=== PATIENT | male | born 1940 | race Two or more races ===

== ENCOUNTER 2025-01-13 14:45 | Emergency (ER) | payer MEDICARE, MEDICAID, SELFPAY ==
[2025-01-13 14:59] VITALS: BP 120/71; PULSE 81; RESP 18; TEMP 36.6; O2SAT 99
--- NOTE | 2025-01-13 15:02 | XR_ITS ---
Examination:Left hip AP, lateral, AP pelvis 3 views Technique: Hip AP lateral, AP pelvis, 3 views Exam date and time:January 13, 2025 1537 hours INDICATIONS: Patient fell today with injury of the left hip, left hip pain FINDINGS: Old healed fracture left hip No acute left hip fracture Acute appearing nondisplaced fracture left inferior pubic ramus IMPRESSION: Recommend CT scan pelvis without contrast follow-up to confirm acute fracture left inferior pubic ramus.
[2025-01-13] MEDS: KETOROLAC INJ 60 MG/2 ML VIAL 30 MG IM (15:10)
--- NOTE | 2025-01-13 16:17 | XR_ITS ---
Examination: CT left hip, without contrast. CT pelvis without intravenous contrast 2-D sagittal reconstructions. 2-D coronal reconstructions. 3-D reconstructions. Date and time of exam:January 13, 2025 at 1733 hrs. Indications: Patient fell today with into the left hip, left hip pain CTDI: vol (mGy):8 DLP: (mGycm):295 Technique: Multiple 1.25 mm axial sections of the pelvis left hip have been obtained. 2-D sagittal and coronal reconstructions have been obtained. 3-D reconstructions have been obtained. Low dose protocols were performed. One or more of the following dose reduction techniques were used; automated exposure control, adjustment of the mA and/or KV according to patient size, use of iterative reconstruction technique. Findings: Severe osteopenia Sacral segments intact Iliac bones intact Acute comminuted fractures left inferior pubic ramus No definite fracture of the left superior pubic ramus Mild deformity of the anterior left acetabulum axial image 96 Hips intact No pelvic hematoma Impression: No acute hip fracture Comminuted acute fracture left inferior pubic ramus Mild old appearing deformity anterior left acetabulum but clinical correlation advised
--- NOTE | 2025-01-13 16:18 | EDRME_ITS ---
Rapid Medical Screening Exam [facility] Arrival date/time: 01/13/25 14:45 84-year-old male with a history of hypertension presents to the emergency room with a chief complaint of pain and tenderness to his left hip after pouring concrete in his yard 1 hour ago and having a ground-level fall. I have greeted and performed a focused initial assessment of this patient. A comprehensive ED assessment and evaluation of the patient, analysis of all test results, and completion of the medical decision making process will be conducted by additional ED providers. Chief Complaint: Fall Time Seen by Provider: 01/13/25 14:54 Vital signs: Vital Signs Temperature 98 F 01/13/25 14:59 Pulse Rate 81 01/13/25 14:59 Respiratory Rate 18 01/13/25 14:59 Blood Pressure 120/71 01/13/25 14:59 Pulse Oximetry (%) 99 01/13/25 14:59 Oxygen Delivery Method Room Air 01/13/25 14:59 Vital signs reviewed by provider: Yes
--- NOTE | 2025-01-13 16:56 | EKG_ITS ---
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
--- NOTE | 2025-01-13 17:04 | PD.EDADULT ---
ED General RME/HPI General Chief complaint: Fall Stated complaint: FALL LANDING ON L) HIP, HIT HEAD, NO BLOOD THINNER Time Seen by Provider: 01/13/25 14:54 Arrival date/time: 01/13/25 14:45 CC: Left hip pain HPI patient was pulling backwards on a wheelbarrow full of concrete and slipped falling backwards experienced immediate left hip pain patient denies LOC or LOC. Patient is awake alert takes Plavix. Patient denies chest pain shortness of breath difficulty breathing. Patient is ambulating but leaning heavily on a cane pain. RME / HPI RME / HPI narrative: 01/13/25 14:45 84-year-old male with a history of hypertension presents to the emergency room with a chief complaint of pain and tenderness to his left hip after pouring concrete in his yard 1 hour ago and having a ground-level fall. I have greeted and performed a focused initial assessment of this patient. A comprehensive ED assessment and evaluation of the patient, analysis of all test results, and completion of the medical decision making process will be conducted by additional ED providers. Related Data Home Medications ?Medication ?Instructions ?Recorded ?Confirmed tamsulosin 0.4 mg capsule (Flomax) 0.4 mg PO DAILY PROSTATE ##0 02/13/13 07/01/24 lisinopril 10 mg tablet 10 mg PO QDAY #0 tabs 03/20/16 07/01/24 dutasteride 0.5 mg capsule 0.5 mg PO DAILY 07/01/24 07/01/24 hydrocodone 10 mg-acetaminophen 1 tab PO QID 07/01/24 07/01/24 325 mg tablet meclizine 25 mg tablet 25 mg PO TID PRN Dizziness 07/01/24 07/01/24 Previous Rx's ?Medication ?Instructions ?Recorded atorvastatin 40 mg tablet 40 mg PO QPM #60 tabs 07/03/24 clopidogrel 75 mg tablet (Plavix) 75 mg PO QDAY #30 tabs 07/04/24 Allergies Allergy/AdvReac Type Severity Reaction Status Date / Time No Known Allergies Allergy Verified 01/13/25 14:50 Review of Systems Review of Systems Narrative Review of Systems: GEN: No fever, no chills, no weight loss EYES: No discharge, no visual changes, no pain HEENT: No ear pain, no congestion, no sore throat PULM: No shortness of breath, no cough, no congestion CV: No chest pain, no dyspnea on exertion, no palpitations GI: No nausea, no vomiting, no diarrhea, no pain, no constipation : No frequency, no urgency, no dysuria MUSC/SKEL: + joint pain, no back pain SKIN: No rash PSYCH: No hallucinations, no depression HEME/LYMPH: No easy bleeding or bruising tendencies NEURO: No weakness, no headache ED Exam Narrative Physical exam: [General: Not in any acute distress Head normocephalic HEENT: Within acceptable limits Neck is supple nontender Chest equal chest rise nontender to palpation Respiratory: Clear to auscultation no wheezes crackles or rubs CV: Rate rhythm is regular no murmurs rubs or clicks Abdomen is distended secondary to body habitus soft nontender no masses positive bowel sounds all 4 quadrants Tenderness to palpation direct pressure on the left hip. No pain with squeeze. Back: No CVA tenderness no spinous process tenderness from cervical spine thoracic and lumbar spine Skin: Intact no petechiae rash induration ulceration or crepitus Extremities: Moving all extremity against resistance cap refill less than 2 seconds neurosensory intact Neuro: Awake alert oriented x3 Glascow coma 15 no focal deficits] Course Quality Measures none Orders Category Date Time Status EKG (ED ONLY) *Do not use* NOW Care 01/13/25 16:[address] cervical spine wo con Stat Exams 01/13/25 17:[address] head/brain wo con Stat Exams 01/13/25 17:[address] hip LT wo con Stat Exams 01/13/25 16:17 Completed EKG (ED Only) Stat Exams 01/13/25 16:56 Draft XR hip LT w pelvis min 4V Stat Exams 01/13/25 15:02 Completed B-Type Natriuretic Peptide Stat Lab 01/13/25 17:09 Completed CBC Stat Lab 01/13/25 17:09 Completed Comprehensive Metabolic Panel Stat Lab 01/13/25 17:09 Completed Drug Screen,Urine Stat Lab 01/13/25 16:56 Ordered LDH (Lactate Dehydrogenase) Stat Lab 01/13/25 17:09 Completed Magnesium Stat Lab 01/13/25 17:09 Completed Partial Thromboplastin Time Stat Lab 01/13/25 17:09 Completed Prothrombin Time with INR Stat Lab 01/13/25 17:09 Completed Troponin I Stat Lab 01/13/25 17:09 Completed Urinalysis Stat Lab 01/13/25 16:56 Ordered Ketorolac Inj [Toradol Inj] Med 01/13/25 15:05 Discontinued 30 mg IM X1 ONE Vital Signs Vital signs: Vital Signs Temperature 98 F 01/13/25 14:59 Pulse Rate 81 01/13/25 14:59 Respiratory Rate 18 01/13/25 14:59 Blood Pressure 120/71 01/13/25 14:59 Pulse Oximetry (%) 99 01/13/25 14:59 Oxygen Delivery Method Room Air 01/13/25 14:59 Discharge Plan Plan Patient Disposition: HOME (Self Care) Patient condition on transfer: Stable Prescriptions/Referrals Prescriptions/Med Rec: No Action tamsulosin [Flomax] 0.4 MG capsule,extended release 24hr 0.4 mg PO DAILY Qty: 0 lisinopril 10 MG tablet 10 mg PO QDAY Qty: 0 hydrocodone-acetaminophen 10-325 mg tablet 1 tab PO QID meclizine 25 mg tablet 25 mg PO TID PRN (Reason: Dizziness) dutasteride 0.5 mg capsule 0.5 mg PO DAILY atorvastatin 40 mg tablet 40 mg PO QPM Qty: 60 0RF clopidogrel [Plavix] 75 mg tablet 75 mg PO QDAY Qty: 30 1RF Referrals: Colten Washington MD [Primary Care Provider] - In 1 week Problem List Clinical Impression: Fracture of inferior pubic ramus Patient/Caregiver Discharge Instructions Other Activity Instructions:: Use your cane walker, take the [place] you have at home for pain if there is a worsening of symptoms return the emergency room for reevaluation. Education Materials: [employer] Print Language: Bangladeshi Stand Alone Forms: Roshni Award Info., Work/School Release, Patient Portal Info Letter PA/MARITIME GUARD Supervising Physician PA/MARITIME GUARD Supervising Physician: Donnie Rust ENP MDM Patient Acuity High Acuity (complete MDM) Clinical Information Provided by: patient Medical Records reviewed [facility] EKG EKG Interpretation(s): EKG performed at 1718 shows a ventricular rate of 64. Of 147 QRS of 102 QTc of 412 is normal sinus rhythm. Labs Lab(s) Interpretation(s): CBC shows no acute leukocytosis H&H of 12.7 and 38.0 respectively no thrombocytopenia Coags within acceptable limits Sodium 135 gap of 6 BUN of 24 no other significant electrolyte imbalances renal impairment or transaminitis or T. bili elevation Troponin is negative BNP is negative Imaging Imaging Interpretation(s): Plain film of the pelvis shows a nondisplaced inferior ramus fracture CT confirms no other additional fractures. CT head C-spine negative for any acute finding requires emergent need intervention. Medication Administration(s) Medication Administration History Discontinued Medications Ketorolac Tromethamine (Ketorolac Inj 60 Mg/2 Ml Vial) 30 mg IM X1 ONE Stop: 01/13/25 15:06 Last Admin: 01/13/25 15:10 Dose: 30 mg Documented By: Diagnosis Differential Diagnosis ED Complaint MDM: Acetabular fracture femoral neck fracture ramus fracture
--- NOTE | 2025-01-13 17:06 | XR_ITS ---
Examination: CT brain head without contrast. 2-D sagittal coronal reconstructions Date and time of exam:January 13, 2025 1726 hrs. Indications: Patient fell today with injury to the head, head pain CTDI: vol (mGy):50.4 DLP: (mGycm):1036 Technique: Multiple CT axial sections of the brain have been obtained, 5 mm slice thickness. Contrast has not been administered. 2-D sagittal, coronal reconstructions have been obtained Low dose protocols were performed. One or more of the following dose reduction techniques were used; automated exposure control, adjustment of the mA and/or KV according to patient size, use of iterative reconstruction technique. Findings: No significant ventricular enlargement. Old infarcts right cerebellar hemisphere, prominent cisterna magna Old fracture medial wall right orbit Significant right maxillary sinus disease Intra-axial or extra-axial hemorrhage density is not seen. No mass effect or midline shift Basal cisterns are not remarkable. Fourth ventricle is midline. Cranial vault intact. Impression: Negative for acute hemorrhage, mass effect or midline shift
--- NOTE | 2025-01-13 17:06 | XR_ITS ---
Examination: CT cervical spine without contrast 2-D sagittal reconstructions 2-D coronal reconstructions 3-D reconstructions. Exam date and time:January 13, 2025 1726 hrs. Indications: Patient fell today with injury to the neck, neck pain CTDI:vol (mGy) 8.42 DLP: (mGycm) 194 Technique: Multiple 2 mm axial sections of the cervical spine have been obtained. The coronal and sagittal reconstructions have been obtained. 3-D reconstructions have been obtained. Low dose protocols were performed. One or more of the following dose reduction techniques were used; automated exposure control, adjustment of the mA and/or KV according to patient size, use of iterative reconstruction technique. Findings: Axial sections demonstrate intact base of the skull. C1 exhibit satisfactory relationship to the odontoid. No acute cervical vertebral body fracture seen. Alignment posterior spinous processes satisfactory. Impression: No acute cervical fracture.
[2025-01-13 17:22] LABS: Basophils % (Auto) 1 % (0-2.5); Eosinophils # (Auto) 0.1 Thou/mm3 (0.0-0.5); Eosinophils % (Auto) 1 % (0-10); Hemoglobin 12.7 g/dL (13.5-16.0); Immature Granulocytes % (Auto) 0 % (0-0); Immature Granulocytes Auto 0.03 Thou/mm3 (0.00-0.00); Lymphocytes # (Auto) 1.2 Thou/mm3 (1.0-4.8); Lymphocytes % (Auto) 16 % (10-50); Mean Corpuscular HGB Conc 33.4 g/dl (31.0-37.0); Mean Corpuscular Hemoglobin 29.7 pg (25.0-35.0); Mean Corpuscular Volume 89 fL (80-100); Monocytes # (Auto) 0.6 Thou/mm3 (0.0-0.8); Monocytes % (Auto) 8 % (0-12); Neutrophils # (Auto) 5.6 Thou/mm3 (1.8-7.7); Neutrophils % (Auto) 74 % (37-80); Nucleated Red Blood Cell % 0 /100 WBC (0); Platelet Count 238 Thou/mm3 (140-440); RDW Standard Deviation 47.3 fL (35.1-43.9); Red Blood Count 4.27 Miln/mm3 (4.50-5.90); White Blood Count 7.6 Thou/mm3 (3.8-10.6)
[2025-01-13 17:56] LABS: B-Type Natriuretic Peptide 65 pg/mL (0-100)
[2025-01-13 18:02] LABS: Alanine Aminotransferase 25 U/L (10-49); Albumin, Serum 4.2 gm/dL (3.4-4.8); Albumin/Globulin Ratio 1.1 (1.2-2.2); Alkaline Phosphatase 104 U/L (46-116); Anion Gap 6 (7-16); Aspartate Amino Transferase 29 U/L (0-34); BUN/Creatinine Ratio 24 Ratio (12-20); Bilirubin,Total 0.5 mg/dL (0.3-1.2); Blood Urea Nitrogen 24 mg/dL (9-23); Calcium 9.4 mg/dL (8.3-10.6); Calcium (Corrected) 9.4 mg/dL (8.5-10.1); Carbon Dioxide 25.3 mMol/L (20.0-31.0); Chloride 104 mMol/L (98-107); Globulin 3.8 gm/dL (2.3-3.5); Glucose 86 mg/dL (74-106); LDH (Lactate Dehydrogenase) 222 U/L (120-246); Magnesium 2.4 mg/dL (1.6-2.6); Osmolality,Calculated 273 (275-295); Potassium 4.2 mMol/L (3.4-5.1); Sodium 135 mMol/L (136-145); Troponin I < 0.020 ng/mL (0.0-0.045); eGFR > 60 See Note
[2025-01-13 18:21] VITALS: BP 95/60; PULSE 62; RESP 18; TEMP 36.6; O2SAT 97
[2025-01-13 18:24] LABS: Prothrombin Time 11.2 Seconds (9.0-12.2)
== END 2025-01-13 19:05 | disposition home or self-care (01) ==
PROVIDERS: Registered Nurse General Practice; Emergency Provider Family Medicine; PCP Family Medicine
DX: S32.592A Other specified fracture of left pubis, initial encounter for closed fracture (principal); S19.9XXA Unspecified injury of neck, initial encounter; S09.90XA Unspecified injury of head, initial encounter; I10 Essential (primary) hypertension; W01.0XXA Fall on same level from slipping, tripping and stumbling without subsequent striking against object, initial encounter
CPT/HCPCS: 36415; 70450; 72125; 73503; 73700; 80053; 80307; 81001; 83615; 83735; 83880; 84484; 85025; 85610; 85730; 93005; 96372; 99284; J1885

== ENCOUNTER 2025-07-02 10:28 | Emergency (ER) | payer MEDICARE, OTHER, SELFPAY ==
[2025-07-02 10:29] VITALS: BMI 25.0
--- NOTE | 2025-07-02 10:33 | EKG_ITS ---
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
[2025-07-02 10:40] VITALS: BP 152/92; PULSE 76; RESP 19; TEMP 36.4; O2SAT 97
--- NOTE | 2025-07-02 11:02 | XR_ITS ---
Examination: CT cervical spine without contrast 2-D sagittal reconstructions 2-D coronal reconstructions 3-D reconstructions. Exam date and time: July 02, 2025, 1139 hours Sudden onset neck pain beginning 4 days ago CTDI:vol (mGy) 14.3 DLP: (mGycm) 319 Technique: Multiple 2 mm axial sections of the cervical spine have been obtained. The coronal and sagittal reconstructions have been obtained. 3-D reconstructions have been obtained. Low dose protocols were performed. One or more of the following dose reduction techniques were used; automated exposure control, adjustment of the mA and/or KV according to patient size, use of iterative reconstruction technique. Findings: Axial sections demonstrate intact base of the skull. C1 exhibit satisfactory relationship to the odontoid. No acute cervical vertebral body fracture seen. Alignment posterior spinous processes satisfactory. Advanced degenerative disc disease C5-C6, C6-C7 C3-C4 moderate bilateral neural foraminal stenosis C4-C5 moderate right neural foraminal stenosis C5-C6 advanced right moderate left neural foraminal stenosis C6-C7 advanced right and moderate left neural foraminal stenosis Impression: No acute cervical fracture. Advanced degenerative disc disease C5-C6, C6-C7 C3-C4 moderate bilateral neuroforaminal stenosis C4-C5 moderate right neuroforaminal stenosis C5-C6 advanced right moderate left neuroforaminal stenosis C6-C7 advanced right moderate left neural foraminal stenosis As clinically warranted, MRI cervical spine without contrast follow-up would be preferable in assessing full extent of acquired soft tissue spinal stenosis
[2025-07-02 11:25] VITALS: PULSE 72
[2025-07-02 11:43] LABS: Basophils # (Auto) 0.0 Thou/mm3 (0.0-0.2); Basophils % (Auto) 1 % (0-2.5); Eosinophils # (Auto) 0.0 Thou/mm3 (0.0-0.5); Eosinophils % (Auto) 1 % (0-10); Hematocrit 37.4 % (41.0-53.0); Hemoglobin 12.4 g/dL (13.5-16.0); Immature Granulocytes Auto 0.01 Thou/mm3 (0.00-0.00); Lymphocytes # (Auto) 1.3 Thou/mm3 (1.0-4.8); Lymphocytes % (Auto) 18 % (10-50); Mean Corpuscular HGB Conc 33.2 g/dl (31.0-37.0); Mean Corpuscular Hemoglobin 31.1 pg (25.0-35.0); Mean Corpuscular Volume 94 fL (80-100); Monocytes # (Auto) 0.9 Thou/mm3 (0.0-0.8); Monocytes % (Auto) 12 % (0-12); Neutrophils # (Auto) 4.9 Thou/mm3 (1.8-7.7); Neutrophils % (Auto) 69 % (37-80); Nucleated Red Blood Cell # 0.00 Thou/mm3 (0.00-0.00); Nucleated Red Blood Cell % 0 /100 WBC (0); Platelet Count 247 Thou/mm3 (140-440); RDW Standard Deviation 46.5 fL (35.1-43.9); Red Blood Count 3.99 Miln/mm3 (4.50-5.90); White Blood Count 7.2 Thou/mm3 (3.8-10.6)
[2025-07-02] MEDS: MORPHINE SULF INJ 4 MG/ML VIAL IVP (11:45)
[2025-07-02] MEDS: ONDANSETRON INJ 2 MG/ML INJ 2 ML 4 MG IVP (11:45)
[2025-07-02] MEDS: SODIUM CHLORIDE 0.9% 250 ML 250 ML 999 ML IV (11:45)
[2025-07-02 11:56] LABS: Alanine Aminotransferase 18 U/L (10-49); Albumin, Serum 4.2 gm/dL (3.4-4.8); Albumin/Globulin Ratio 1.2 (1.2-2.2); Alkaline Phosphatase 100 U/L (46-116); Anion Gap 11 (7-16); Aspartate Amino Transferase 23 U/L (0-34); BUN/Creatinine Ratio 21 Ratio (12-20); Bilirubin,Total 0.8 mg/dL (0.3-1.2); Blood Urea Nitrogen 15 mg/dL (9-23); Calcium 9.2 mg/dL (8.3-10.6); Calcium (Corrected) 9.2 mg/dL (8.5-10.1); Carbon Dioxide 23.7 mMol/L (20.0-31.0); Chloride 101 mMol/L (98-107); Creatinine (Component) 0.7 mg/dL (0.6-1.3); Estimated Creatinine Clearance 73.3 mL/min (>60); Globulin 3.5 gm/dL (2.3-3.5); Glucose 103 mg/dL (74-106); Osmolality,Calculated 272 (275-295); Potassium 4.0 mMol/L (3.4-5.1); Sodium 136 mMol/L (136-145); Total Protein 7.7 gm/dL (5.7-8.2); Troponin I < 0.020 ng/mL (0.0-0.045); eGFR > 60 See Note
--- NOTE | 2025-07-02 12:20 | PD.EDCHEST ---
ED Chest Pain RME/HPI General Chief Complaint: Chest Pain Stated Complaint: UPPER NECK AND BACK PAIN RADIATING X 4DAYS Time Seen by Provider: 07/02/25 10:52 Arrival date/time: 07/02/25 10:28 Limitations: no limitations RME / HPI RME / HPI narrative: 84 year old male with history of CVA, hypertension presents to the ED for evaluation of neck pain beginning 4-5 days ago. Pain described as aching in sensation that is accompanied by difficulty turning his head to the right. Additionally complains of mild chest pain. States he has consulted with his PCP who prescribed Baclofen and has taken the medication without change. Patient and expressed concerns of something more going on and possible having had another stroke. Denies any fevers, chills, sweats, cough, shortness of breath, weakness. No trauma or injury. Related Data Home Medications ?Medication ?Instructions ?Recorded ?Confirmed tamsulosin 0.4 mg capsule (Flomax) 0.4 mg PO DAILY PROSTATE ##0 02/13/13 07/01/24 lisinopril 10 mg tablet 10 mg PO QDAY #0 tabs 03/20/16 07/01/24 dutasteride 0.5 mg capsule 0.5 mg PO DAILY 07/01/24 07/01/24 hydrocodone 10 mg-acetaminophen 1 tab PO QID 07/01/24 07/01/24 325 mg tablet meclizine 25 mg tablet 25 mg PO TID PRN Dizziness 07/01/24 07/01/24 Previous Rx's ?Medication ?Instructions ?Recorded atorvastatin 40 mg tablet 40 mg PO QPM #60 tabs 07/03/24 clopidogrel 75 mg tablet (Plavix) 75 mg PO QDAY #30 tabs 07/04/24 hydrocodone 5 mg-acetaminophen 325 1 tab PO Q8H PRN pain #14 tabs 07/02/25 mg tablet Allergies Allergy/AdvReac Type Severity Reaction Status Date / Time No Known Allergies Allergy Verified 07/02/25 10:32 Review of Systems Review of Systems Systems Reviewed: All systems reviewed, normal except as documented Past Medical History Past Medical History NEUROLOGIC: Positive Cerebrovascular Accident CARDIAC: Positive Hypercholesterolemia and Hypertension RESPIRATORY: Negative Chronic Obstructive Pulmonary Disease (COPD) GENITOURINARY: Positive Benign Prostatic Hyperplasia ENDOCRINE: Negative Diabetes Mellitus Type 1 or Diabetes Mellitus Type 2 Family History FAMILY HISTORY: Positive Family Cancer (mom of stomach cancer) Social History SMOKING STATUS: Never smoker SUBSTANCE USE: does not use ED Exam General Limitations: Present no limitations General appearance: Present alert and in no apparent distress Head Head exam: Present atraumatic, normocephalic and normal inspection Eye Eye exam: Present normal appearance, PERRL and EOMI ENT ENT exam: Present normal exam, normal oropharynx and mucous membranes moist Neck Neck exam: Present other (Myospasm of the left neck) Chest Chest inspection: Present normal inspection and symmetric chest wall rise Respiratory Respiratory exam: Present normal lung sounds bilaterally Cardiovascular Cardiovascular exam: Present regular rate, normal rhythm and normal heart sounds Abdominal Exam Abdominal exam: Present soft and normal bowel sounds Extremities Exam Extremities exam: Present normal inspection and full ROM Back Exam Back exam: Present other (Paraspinous muscle and left trapezius tenderness, ROM is poor and he can only rotate head externally to the rigth 10 degrees from the center. ) Neurological Exam Neurological exam: Present alert, oriented X3 and CN II-XII intact Psychiatric Psychiatric exam: Present normal affect and normal mood Skin Skin exam: Present warm, dry, intact and normal color Course Quality Measures none Orders Category Date Time Status Hand Paster STAT Care 07/02/25 11:02 Active Continuous Pulse Oximetry ONCE Care 07/02/25 11:02 Active EKG (ED ONLY) *Do not use* NOW Care 07/02/25 10:33 Completed Insert IV STAT Care 07/02/25 11:[address] cervical spine wo con Stat Exams 07/02/25 11:02 Completed EKG (ED Only) Stat Exams 07/02/25 10:33 Draft CBC Stat Lab 07/02/25 11:23 Completed Comprehensive Metabolic Panel Stat Lab 07/02/25 11:23 Completed Troponin I Stat Lab 07/02/25 11:23 Completed Morphine* Inj Med 07/02/25 11:04 Discontinued 4 mg IVP X1 ONE Ondansetron Inj [Zofran Inj] Med 07/02/25 11:04 Discontinued 4 mg IVP X1 ONE Sodium Chloride 0.9% 250 ml [Ns] 250 ml Med 07/02/25 11:02 Discontinued IV 999 mls/hr Vital Signs Vital signs: Vital Signs Temperature 97.5 F 07/02/25 10:40 Pulse Rate 76 07/02/25 10:40 Respiratory Rate 19 07/02/25 10:40 Blood Pressure 152/92 H 07/02/25 10:40 Pulse Oximetry (%) 97 07/02/25 10:40 Oxygen Delivery Method Room Air 07/02/25 10:40 Pulse ox is 97% on room air which is adequate. Chest Pain MDM Narrative MDM Narrative:: Maribell Hanley am scribing for and in the presence of Dr. Sanderson. Patient data External records reviewed:: [facility] previous records Clinical information provided by:: patient Social determinants that could affect healthcare access:: none Patient has the following chronic illnesses:: CVA, HTN How is presenting disease/condition affected by chronic disease/condition?: exacerbated by Evaluation data The following diagnostics were reviewed and interpreted by me:: lab results, radiology exam(s) and EKG tracing(s) Lab and/or radiology exams considered but not ordered:: None Interpretation Summary: EKG @ 10:35 AM. NSR with frequent PVCs, rate 77, no STEMI. Medications / Prescriptions Medications or Prescriptions considered but not ordered:: None Medication administrations:: Medication Administration History Discontinued Medications Sodium Chloride (Ns) 250 mls @ 999 mls/hr IV .Q16M ONE Stop: 07/02/25 11:17 Last Infusion: 07/02/25 12:01 Dose: Infused Documented By: Admin: 07/02/25 11:45 Dose: 999 mls/hr Documented By: SANFORD Morphine Sulfate (Morphine Sulf Inj 4 Mg/Ml Vial) 4 mg IVP X1 ONE Stop: 07/02/25 11:05 Last Admin: 07/02/25 11:45 Dose: 4 mg Documented By: SANFORD Ondansetron HCl (Ondansetron Inj 2 Mg/Ml Inj 2 Ml) 4 mg IVP X1 ONE Stop: 07/02/25 11:05 Last Admin: 07/02/25 11:45 Dose: 4 mg Documented By: SANFORD See above Consultations Consultation(s) initiated? (list below): No Diagnosis Chest Pain Differential Diagnosis: stable angina, atypical chest pain, costochondritis, chest pain, biliary colic and other (neck pain, neck sprain ) Most likely diagnosis given after review of the tests above:: Multi level spinal stenosis of cervical spine Acute myospasm of the left neck Admission Indicated Admission indicated?: not indicated Admission Request Was there a request for admission?: No Disposition Plan Disposition Plan: Discharge Discharge Attestation Discharge Attestation: The patient and all family members were given an opportunity to ask questions and understood the discharge instructions. Discharge instructions specifically effects, indications for sooner follow up or return to the emergency department, and the expected course of current diagnosis. Patient condition: Stable Discharge Plan Plan Patient Disposition: HOME (Self Care) Patient condition on transfer: Stable Prescriptions/Referrals Prescriptions/Med Rec: New hydrocodone-acetaminophen 5-325 mg tablet 1 tab PO Q8H MDD 3 PRN (Reason: pain) Qty: 14 0RF No Action tamsulosin [Flomax] 0.4 MG capsule,extended release 24hr 0.4 mg PO DAILY Qty: 0 lisinopril 10 MG tablet 10 mg PO QDAY Qty: 0 hydrocodone-acetaminophen 10-325 mg tablet 1 tab PO QID meclizine 25 mg tablet 25 mg PO TID PRN (Reason: Dizziness) dutasteride 0.5 mg capsule 0.5 mg PO DAILY atorvastatin 40 mg tablet 40 mg PO QPM Qty: 60 0RF clopidogrel [Plavix] 75 mg tablet 75 mg PO QDAY Qty: 30 1RF Referrals: Alan Selby [Primary Care Provider] - In 1 week Problem List Clinical Impression: Spinal stenosis of cervical region, Neck muscle spasm, Neck pain Patient/Caregiver Discharge Instructions Education Materials: Self Care Back Day, ED Muscle Spasm, ED Neck Pain, ED Neck Spasm, No Trauma Additional Instructions: Continue your Baclofen four times a day. For pain, take both 1-2 Tylenol 500mg tablets every 6 hours AND 2 Advil Gel 200mg capsules every 6 hours. Bed rest for the next 2 days. Follow up with your doctor next Sunday. Print Language: Somali Stand Alone Forms: Roshni Award Info., Patient Portal Info Letter
[2025-07-02 13:11] VITALS: BP 127/73; PULSE 63; RESP 17; TEMP 36.5; O2SAT 98
[2025-07-02 15:28] VITALS: BP 156/81; PULSE 71; RESP 16; TEMP 36.7; O2SAT 95
== END 2025-07-02 15:29 | disposition home or self-care (01) ==
PROVIDERS: Emergency Provider Family Medicine; PCP Physician Assistant
DX: M48.02 Spinal stenosis, cervical region (principal); I49.1 Atrial premature depolarization; I10 Essential (primary) hypertension; E78.00 Pure hypercholesterolemia, unspecified
CPT/HCPCS: 36415; 72125; 80053; 84484; 85025; 93005; 96374; 96375; 99284; J2270; J2405; J7050